=== PATIENT | female | born 1985 | race Hispanic/Latino ===

== ENCOUNTER 2018-06-12 15:32 | Emergency (ER) | payer OTHER, SELFPAY ==
[2018-06-12 15:53] VITALS: BMI 33.4
[2018-06-12 15:58] VITALS: RESP 18; TEMP 98.2
[2018-06-12 17:00] LABS: URINE APPEARANCE CLEAR (CLEAR); URINE BILIRUBIN NEGATIVE (NEGATIVE); URINE BLOOD NEGATIVE (NEGATIVE); URINE COLOR LIGHT YELLOW (YELLOW); URINE GLUCOSE (UA) NEGATIVE (NEGATIVE); URINE LEUKOCYTE ESTERASE NEGATIVE Leu/uL (NEGATIVE); URINE PROTEIN NEGATIVE mg/dL (<30 mg/dL); URINE UROBILINOGEN 0.2 E.U./dL (<1 E.U./dL)
--- NOTE | 2018-06-12 17:48 | ED PDOC ---
Arrival/HPI - General Historian: Patient - History of Present Illness Narrative History of Present Illness (Text): 06/12/18 17:50 32-year-old otherwise healthy female presents today with a 3 day history of urinary frequency and urgency. Patient denies dysuria. No nausea vomiting diarrhea or constipation. No abdominal pain. No vaginal discharge. Patient denies back pain. Patient believes she has a urinary tract infection because she states she gets these exact same symptoms with previous infections. Patient denies fevers or chills. No dizziness or weakness. No other complaints <Martha Daniels - Last Filed: 06/12/18 17:58> <Kalyan Sparks - Last Filed: 06/12/18 18:44> - General Chief Complaint: Female Genitourinary Time Seen by Provider: 06/12/18 15:35 Past Medical History - Provider Review Nursing Documentation Reviewed: Yes - Travel History Have you recently traveled outside [place] w/in the past 3 mons?: No - Infectious Disease Hx of Infectious Diseases: None - Tetanus Immunization Tetanus Immunization: Unknown - Reproductive Currently : No - Genitourinary/Gynecological Hx Urinary Tract Infection: Yes - Psychiatric Hx Substance Use: No <Martha Daniels - Last Filed: 06/12/18 17:58> Family/Social History - Physician Review Nursing Documentation Reviewed: Yes Family/Social History: Unknown Family HX Smoking Status: Never Smoked Hx Alcohol Use: Yes Frequency of alcohol use: Socially Hx Substance Use: No <Martha Daniels - Last Filed: 06/12/18 17:58> Allergies/Home Meds <Martha Daniels - Last Filed: 06/12/18 17:58> <Kalyan Sparks - Last Filed: 06/12/18 18:44> Allergies/Adverse Reactions: Allergies Sulfa (Sulfonamide Antibiotics) Allergy (Verified 06/12/18 16:44) ANAPHYLAXIS Review of Systems - Review of Systems Constitutional: absent: Fatigue, Fevers Respiratory: absent: SOB, Cough Cardiovascular: absent: Chest Pain, Palpitations Gastrointestinal: absent: Abdominal Pain, Stool Changes, Constipation, Diarrhea, Nausea, Vomiting Genitourinary Female: Frequency. absent: Dysuria, Hematuria, Urine Output Changes, Vaginal Bleeding, Vaginal Discharge Musculoskeletal: absent: Arthralgias, Back Pain, Neck Pain Skin: absent: Rash, Pruritis Neurological: absent: Headache, Dizziness Psychiatric: absent: Anxiety, Depression <Martha Daniels T - Last Filed: 06/12/18 17:58> Physical Exam Vital Signs Reviewed: Yes Vital Signs Temp Pulse Resp BP Pulse Ox 06/12/18 15:32 98.2 F 75 18 121/83 99 Temperature: Afebrile Blood Pressure: Normal Pulse: Regular Respiratory Rate: Normal Appearance: Positive for: Well-Appearing, Non-Toxic, Comfortable Pain Distress: None Mental Status: Positive for: Alert and Oriented X 3 Finger Stick Blood Glucose: 95 - Systems Exam Head: Present: Atraumatic Mouth: Present: Moist Mucous Membranes Respiratory/Chest: Present: Clear to Auscultation Cardiovascular: Present: Regular Rate and Rhythm Abdomen: No: Tenderness, Distention, Rebound, Guarding Back: Present: Normal Inspection. No: CVA Tenderness Neurological: Present: GCS=15, Speech Normal Skin: Present: Warm, Dry, Normal Color. No: Rashes Psychiatric: Present: Alert, Oriented x 3 <Martha Daniels T - Last Filed: 06/12/18 17:58> Vital Signs Temp Pulse Resp BP Pulse Ox 06/12/18 18:08 70 18 120/65 100 06/12/18 15:32 98.2 F 75 18 121/83 99 <Kalyan Sparks - Last Filed: 06/12/18 18:44> Medical Decision Making ED Course and Treatment: 06/12/18 17:51 Patient is nontoxic well-appearing in no distress with stable vital signs UA: Within normal limits Fingerstick: 95 Patient with urinary frequency and urgency will start on Keflex. Patient was advised to follow-up with urologist within the next 2 days. advised follow up with the primary care physician within the next 2 days. advised immediate return if symptoms worsen,persist or if new symptoms develop. Patient was advised to follow-up with the urologist within the next 2 days. Patient verbalizes understanding of discharge instructions and need for immediate followup. all aspects of this case were discussed the attending of record. Impression: Urinary frequency, urinary urgency Keflex one capsule twice daily 7 days Followup with primary care physician within the next 2 days Follow up with the urologist for the next 2 days Return if symptoms worsen persist or if new symptoms develop 06/12/18 17:58 - Lab Interpretations Lab Results: Urine Color Light yellow (YELLOW) 06/12/18 16:51 Urine Appearance Clear (CLEAR) 06/12/18 16:51 Urine pH 6.0 (4.7-8.0) 06/12/18 16:51 Ur Specific [place] >= 1.030 (1.005-1.035) 06/12/18 16:51 Urine Protein Negative mg/dL (<30 mg/dL) 06/12/18 16:51 Urine Glucose (UA) Negative mg/dL (NEGATIVE) 06/12/18 16:51 Urine Ketones Negative mg/dL (NEGATIVE) 06/12/18 16:51 Urine Blood Negative (NEGATIVE) 06/12/18 16:51 Urine Nitrate Negative (NEGATIVE) 06/12/18 16:51 Urine Bilirubin Negative (NEGATIVE) 06/12/18 16:51 Urine Urobilinogen 0.2 E.U./dL (<1 E.U./dL) 06/12/18 16:51 Ur Leukocyte Esterase Negative Ofelia/uL (NEGATIVE) 06/12/18 16:51 - Medication Orders Current Medication Orders: Discontinued Medications Cephalexin Monohydrate (Keflex) 500 mg PO STAT STA; Protocol Stop: 06/12/18 17:42 <Martha Daniels T - Last Filed: 06/12/18 17:58> - Lab Interpretations Lab Results: Urine Color Light yellow (YELLOW) 06/12/18 16:51 Urine Appearance Clear (CLEAR) 06/12/18 16:51 Urine pH 6.0 (4.7-8.0) 06/12/18 16:51 Ur Specific [place] >= 1.030 (1.005-1.035) 06/12/18 16:51 Urine Protein Negative mg/dL (<30 mg/dL) 06/12/18 16:51 Urine Glucose (UA) Negative mg/dL (NEGATIVE) 06/12/18 16:51 Urine Ketones Negative mg/dL (NEGATIVE) 06/12/18 16:51 Urine Blood Negative (NEGATIVE) 06/12/18 16:51 Urine Nitrate Negative (NEGATIVE) 06/12/18 16:51 Urine Bilirubin Negative (NEGATIVE) 06/12/18 16:51 Urine Urobilinogen 0.2 E.U./dL (<1 E.U./dL) 06/12/18 16:51 Ur Leukocyte Esterase Negative Ofelia/uL (NEGATIVE) 06/12/18 16:51 - Medication Orders Current Medication Orders: Discontinued Medications Cephalexin Monohydrate (Keflex) 500 mg PO STAT STA; Protocol Stop: 06/12/18 17:42 Last Admin: 06/12/18 17:54 Dose: 500 mg <Kalyan Sparks - Last Filed: 06/12/18 18:44> - PA / PLUSH BRUSHER / Resident Statement MD/DO has reviewed & agrees with the documentation as recorded. <Kalyan Sparks - Last Filed: 06/12/18 18:44> Disposition/Present on Arrival - Present on Arrival Any Indicators Present on Arrival: No History of DVT/PE: No History of Uncontrolled Diabetes: No Urinary Catheter: No History of Decub. Ulcer: No History Surgical Site Infection Following: None - Disposition Have Diagnosis and Disposition been Completed?: Yes Disposition Time: 17:45 Patient Plan: Discharge <Martha Daniels - Last Filed: 06/12/18 17:58> <Kalyan Sparks - Last Filed: 06/12/18 18:44> - Disposition Diagnosis: Urinary frequency, Urinary urgency Disposition: HOME/ ROUTINE Condition: GOOD Discharge Instructions (ExitCare): Urinary Tract Infections in Adults Additional Instructions: Keflex one capsule twice daily 7 days Followup with primary care physician within the next 2 days Follow up with the urologist for the next 2 days Return if symptoms worsen persist or if new symptoms develop Prescriptions: Cephalexin [Keflex] 500 mg PO BID #14 capsule Referrals: Guille Mayorga MD [Staff Provider] - Follow up with primary Zeny Lora MD [Medical Doctor] - Follow up with primary [facility] [Outside] - Follow up with primary Forms: [employer] (Moroccan)
[2018-06-12 18:08] VITALS: BP 120/65; PULSE 70; O2SAT 100
== END 2018-06-12 18:08 | disposition home or self-care (01) ==
LOC: ED 15:32
DX: R35.0 Frequency of micturition (principal); R39.15 Urgency of urination

== ENCOUNTER 2018-08-19 10:03 | Outpatient (CLI) | payer OTHER | END 2018-08-19 10:04 | disposition home or self-care (01) | LOC: RAD 10:03 ==